=== PATIENT | female | born 1955 | race Caucasian/White ===

== ENCOUNTER 2018-09-04 08:26 | Outpatient (RCR) | payer MEDICARE, OTHER | END 2018-12-03 | disposition home or self-care (01) | LOC: CARD 08:26 | PROVIDERS: ATTEND Internal Medicine Cardiovascular Disease | DX: R07.89 Other chest pain (principal); I08.1 Rheumatic disorders of both mitral and tricuspid valves; E78.2 Mixed hyperlipidemia; I10 Essential (primary) hypertension; Z90.711 Acquired absence of uterus with remaining cervical stump | CPT/HCPCS: 93225; 93226 ==

== ENCOUNTER 2018-10-09 08:52 | Outpatient (CLI) | payer MEDICARE, OTHER | END 2018-10-09 09:29 | disposition home or self-care (01) | LOC: SLEEP 08:52 | PROVIDERS: ATTEND Internal Medicine Cardiovascular Disease | DX: G47.33 Obstructive sleep apnea (adult) (pediatric) (principal) ==

== ENCOUNTER 2018-11-21 20:46 | Outpatient (CLI) | payer MEDICARE, OTHER | END 2018-11-22 06:55 | disposition home or self-care (01) | LOC: SLEEP 20:46 | PROVIDERS: ATTEND Otolaryngology Otolaryngology/Facial Plastic Surgery | DX: G47.33 Obstructive sleep apnea (adult) (pediatric) (principal); G47.10 Hypersomnia, unspecified; R06.83 Snoring | CPT/HCPCS: 95811 ==

== ENCOUNTER 2020-02-01 20:46 | Emergency (ER) | payer MEDICARE, OTHER ==
[~2020-02-01] VITALS: Ht 165.1 cm; Wt 98.8 kg
--- OUTSIDE RECORDS SUMMARY | 2020-02-01 20:52 | XMS REPORT | Continuity of Care Document ---
Author Organization Unknown Address Unknown Phone Unavailable Allergies Active Description Code Type Severity Reaction Onset Reported/Identified Relationship to Patient Clinical Status Yes AZITHROMYCIN AZIT HROMYCIN UNKNOWN Yes AZITHROMYCIN UNKNOWN UNKNOWN Medications Medication Packaging Start Date St op Date Route Dosage Sig NORMAL SALINE 1000CC IV BAG INJ 0.9 % (NS 1000CC IV BAG) ml 08/08/2018 08/08/2018 ONCE&2218 ASPIRIN 81MG CHEWABLE TAB 81 MG (BABY ASPI RIN) tabs 08/08/2018 08/08/2018 ONCE&2236 HEPARIN 5,000 units/cc 1cc vial UNITS 08/09/2018 08/09/2018 ONCE&0203 HEPARIN DRIP IV BAG INJ 100 U/CC (HEPARIN DRIP 250CC PREMIX BAG) UNITS 08/09/2018 08/24/2018 CONTINUOUSEVERY 0 Hour Problems Date Dx Coded Attending Type Code Diagnosis Diagnosed By 03/24/2016 W 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 33 OBSTRUCTIVE SLEEP APNEA (ADULT) (PEDIATR 10/01/2018 PAOLA LIRIANO MD Ot E78. 2 MIXED HYPERLIPIDEMIA 10/01/2018 PAOLA LIRIANO MD Ot I08. 1 RHEUMATIC DISORDERS OF BOTH MITRAL AND T 10/01/2018 PAOLA LIRIANO MD Ot I10 ESSENTIAL (PRIMARY) HYPERTENSION 10/01/2018 PAOLA LIRIANO MD Ot R07. 89 OTHER CHEST PAIN 10/01/2018 PAOLA LIRIANO MD Ot Z90.711 ACQUIRED ABSENCE OF UTERUS WITH REMAININ 10/01/2018 PAOLA LIRIANO MD Ot G47. 33 OBSTRUCTIVE SLEEP APNEA (ADULT) (PEDIATR 10/02/2018 PAOLA LIRIANO MD Ot G47. 33 OBSTRUCTIVE SLEEP APNEA (ADULT) (PEDIATR 10/07/2018 PAOLA LIRIANO MD Ot E78. 2 MIXED HYPERLIPIDEMIA 10/07/2018 PAOLA LIRIANO MD Ot I08. 1 RHEUMATIC DISORDERS OF BOTH MITRAL AND T 10/07/2018 PAOLA LIRIANO MD Ot I10 ESSENTIAL (PRIMARY) HYPERTENSION 10/07/2018 PAOLA LIRIANO MD Ot R07. 89 OTHER CHEST PAIN 10/07/2018 PAOLA LIRIANO MD Ot Z90.711 ACQUIRED ABSENCE OF UTERUS WITH REMAININ 10/09/2018 PAOLA LIRIANO MD Ot G47. 33 OBSTRUCTIVE SLEEP APNEA (ADULT) (PEDIATR 10/09/2018 PAOLA LIRIANO MD Ot G47. 33 OBSTRUCTIVE SLEEP APNEA (ADULT) (PEDIATR 10/10/2018 PAOLA LIRIANO MD Ot G47. 33 OBSTRUCTIVE SLEEP APNEA (ADULT) (PEDIATR 10/13/2018 Nidia Sanz W 008.8 INTESTINAL INFECTION DUE TO OTHER ORGANISM, NOT ELSEWHERE CLASSIFIED 10/13/2018 Nidia Sanz A08.4 VIRAL INTESTINAL INFECTION, UNSPECIFIED 10/22/2018 PATEL HOLT MD Ot G47.33 OBSTRUCTIVE SLEEP APNEA (ADULT) (PEDIATR 10/28/2018 PATEL HOLT MD Ot G47.33 OBSTRUCTIVE SLEEP APNEA (ADULT) (PEDIATR 11/20/2018 PAOLA LIRIANO MD Ot E78. 2 MIXED HYPERLIPIDEMIA 11/20/2018 PAOLA LIRIANO MD Ot I08. 1 RHEUMATIC DISORDERS OF BOTH MITRAL AND T 11/20/2018 PAOLA LIRIANO MD Ot I10 ESSENTIAL (PRIMARY) HYPERTENSION 11/20/2018 PAOLA LIRIANO MD Ot R07. 89 OTHER CHEST PAIN 11/20/2018 PAOLA LIRIANO MD Ot Z90.711 ACQUIRED ABSENCE OF UTERUS WITH REMAININ 11/20/2018 PATEL HOLT MD Ot G47.33 OBSTRUCTIVE SLEEP APNEA (ADULT) (PEDIATR 11/21/2018 PATEL HOLT MD Ot G47.33 OBSTRUCTIVE SLEEP APNEA (ADULT) (PEDIATR 11/22/2018 JONATHON ROBERTS, PATEL Salas Ot G47.10 HYPERSOMNIA, UNSPECIFIED 11/22/2018 PATEL HOLT MD Ot G47.33 OBSTRUCTIVE SLEEP APNEA (ADULT) (PEDIATR 11/22/2018 JONATHON ROBERTS, PATEL Salas Ot R06.83 SNORING 11/25/2018 PATEL HOLT MD Ot G47.10 HYPERSOMNIA, UNSPECIFIED 11/25/2018 PATEL HOLT MD Ot G47.33 OBSTRUCTIVE SLEEP APNEA (ADULT) (PEDIATR 11/25/2018 JONATHON ROBERTS, PATEL Salas Ot R06.83 SNORING 12/03/2018 PAOLA LIRIANO MD Ot E78. 2 MIXED HYPERLIPIDEMIA 12/03/2018 PAOLA LIRIANO MD Ot I08. 1 RHEUMATIC DISORDERS OF BOTH MITRAL AND T 12/03/2018 PAOLA LIRIANO MD Ot I10 ESSENTIAL (PRIMARY) HYPERTENSION 12/03/2018 PAOLA LIRIANO MD Ot R07. 89 OTHER CHEST PAIN 12/03/2018 PAOLA LIRIANO MD Ot Z90.711 ACQUIRED ABSENCE OF UTERUS WITH REMAININ 12/04/2018 PAOLA LIRIANO MD Ot E78. 2 MIXED HYPERLIPIDEMIA 12/04/2018 PAOLA LIRIANO MD Ot I08. 1 RHEUMATIC DISORDERS OF BOTH MITRAL AND T 12/04/2018 PAOLA LIRIANO MD, Ot I10 ESSENTIAL (PRIMARY) HYPERTENSION 12/04/2018 PAOLA LIRIANO MD Ot R07. 89 OTHER CHEST PAIN 12/04/2018 PAOLA LIRIANO MD Ot Z90.711 ACQUIRED ABSENCE OF UTERUS WITH REMAININ Procedures There is no data. Results Test Result Range Thyroid Stimulating Hormone - 03/22/17 0 7:58 TSH 1.72 mIU/mL 0.32-5.00 BMP - 04/12/17 08:10 Anion Gap 15 6-14 BUN 23 mg/dL 5-25 Calcium 9.5 mg/dL 8.3-10.4 Chloride 107 mmol/L 95-114 CO2 25 mEq/L 22-33 Creat 0.99 mg/dL 0.50-1.50 eGFR 56 mL/min/1.73m2 >59 Glucose 102 mg/dL 70-110 Osmo 299 280-295 Potassium 4.0 mmol/L 3.5-5.3 Sodium 143 mmol/L 134-148 Comprehensive Metabolic Panel - 07/23/17 13:36 Albumin 4.2 g/dL 3.6-5.1 ALP 89 U/L 35-130 ALT 51 U/L 6-45 Anion Gap 14 6-14 AST 33 U/L 2-40 BUN 19 mg/dL 5-25 Calcium 10.1 mg/dL 8.3-10.4 Chloride 101 mmol/L 95-114 CO2 30 mEq/L 22-33 Creat 0.89 mg/dL 0.50-1.50 eGFR 64 mL/min/1.73m2 >59 Globulin 2.4 g/dL 2.3-3.5 Glucose 92 mg/dL 70-110 Osmo 293 280-295 Potassium 3.9 mmol/L 3.5-5.3 Sodium 141 mmol/L 134-148 TBil 0.8 mg/dL 0.2-1.2 TP 6.6 g/dL 6.0-8.3 Mycoplasma - 07/23/17 13:36 Mycoplasma Negative Negative Urine Culture - 07/23/17 13:36 PRELIM CULTURE RESULTS No Growth 24 hours FINAL CULTURE RESULTS No Growth 48 hours MEDIA PLATED Setup at 12:07 on 07/24/2017 CULTURE SOURCE clean catch, add on per Dr Dacosta Comprehensive Metabolic Panel - 08/08/18 22:20 Albumin 4.2 g/dL 3.6-5.1 ALP 99 U/L 35-130 ALT 29 U/L 6-45 Anion Gap 14 6-14 AST 26 U/L 2-40 BUN 21 mg/dL 5-25 Calcium 9.5 mg/dL 8.3-10.4 Chloride 103 mmol/L 95-114 CO2 26 mEq/L 22-33 Creat 0.91 mg/dL 0.50-1.50 eGFR 62 mL/min/1.73m2 >59 Globulin 3.3 g/dL 2.3-3.5 Glucose 128 mg/dL 70-110 Osmo 293 280-295 Potassium 3.4 mmol/L 3.5-5.3 Sodium 140 mmol/L 134-148 TBil 0.6 mg/dL 0.2-1.2 TP 7.5 g/dL 6.0-8.3 Creatine Kinase - 08/08/18 22:20 CK 109 U/L 26-174 i-Stat CKMB - 08/09/18 01:15 i-Stat CKMB 6.30 ng/mL 0.00-3.49 Zay Mtn Spotted Fev, IgG, Qn - 8 10:29 RMSF, IgG, EIA Positive Negative RMSF, IgG, IFA - 08/23/18 10:29 RMSF, IgG, IFA <1:64 Neg <1:64 Zay Mtn Spotted Fever, IgM - 08/23/18 10:29 Zay Mtn Spotted Fever, IgM 0.48 index 0.00-0.89 ROSEMARY w/Reflex - 08/23/18 10:29 ROSEMARY Direct Negative Negative Sed Rate - 08/23/18 10:29 Sed Rate 8 mm/hr 9-15 ROSEMARY w/Reflex - 08/23/18 10:29 ROSEMARY DIRECT NEGATIVE NEGATIVE Lipid Panel - 09/24/18 08:42 C/HDL 3.4 3.7-6.7 Cholesterol 185 mg/dL 100-240 HDL 55 mg/dL 30-85 LDL-Calculated 112 mg/dL 0-100 Trig 89 mg/dL 35-160 VLDL 18 mg/dL 0-42 Comprehensive Metabolic Panel - 10/13/18 17:18 Albumin 4.1 g/dL 3.6-5.1 ALP 91 U/L 35-130 ALT 23 U/L 6-45 Anion Gap 15 6-14 AST 26 U/L 2-40 BUN 20 mg/dL 5-25 Calcium 9.6 mg/dL 8.3-10.4 Chloride 106 mmol/L 95-114 CO2 24 mEq/L 22-33 Creat 1.19 mg/dL 0.50-1.50 eGFR 45 mL/min/1.73m2 >59 Globulin 2.4 g/dL 2.3-3.5 Glucose 96 mg/dL 70-110 Osmo 293 280-295 Potassium 3.7 mmol/L 3.5-5.3 Sodium 141 mmol/L 134-148 TBil 0.5 mg/dL 0.2-1.2 TP 6.5 g/dL 6.0-8.3 Urine Culture - 01/24/19 17:14 PRELIM CULTURE RESULTS No Growth 24 hours FINAL CULTURE RESULTS No Growth 48 hours CULTURE SOURCE CC Hemoglobin A1C - 11/12/19 07:25 % A1C 6.00 % 5.40-6.60 AvGlu 136 mg/dL 70-110 Encounters ACCT No. Visit Date/Time Discharge Status Pt. Type Provider Facility Loc./Unit Complaint [id number] 06/05/2014 08:53:32 06/05/2014 23:59: 59 CLS Outpatient Maritza Gu Tonya [id number] 05/04/2014 15:42:21 05/04/2014 23:59: 59 CLS Outpatient Maritza Gu Tonya [id number] 08/27/2018 15:22:00 Document Registration [id number] 11/12/2019 07:21:00 11/12/2019 23:59 :00 DIS Outpatient Danielle Dacosta [id number] 01/24/2019 17:13:00 01/24/2019 23:59: 00 DIS Outpatient Danielle Dacosta [id number] 10/13/2018 17:06:00 10/13/2018 19:00: 00 DIS Outpatient Nidia Sanz [facility] ER [id number] 09/24/2018 08:39:00 09/24/2018 23:59: 00 DIS Outpatient PAOLA LIRIANO [id number] 08/23/2018 10:26:00 08/23/2018 23:59: 00 DIS Outpatient Danielle Dacosta [id number] 08/08/2018 22:06:00 08/09/2018 03:10: 00 [id number] 07/23/2017 13:33:00 07/23/2017 23:59: 00 DIS Outpatient Danielle Dacosta [id number] 07/23/2017 11:54:00 07/23/2017 23:59: 00 DIS Outpatient Danielle Dacosta [id number] 04/12/2017 07:34:00 04/12/2017 23:59: 00 DIS Outpatient Danielle Dacosta [id number] 03/22/2017 07:56:00 03/22/2017 23:59: 00 DIS Outpatient Danielle Dacosta [id number] 11/02/2016 09:55:00 11/02/2016 23:59: 00 DIS Outpatient Danielle Dacosta [id number] 03/31/2016 00:00:00 03/31/2016 00:00: 00 CAN Outpatient Edgar Callgabo [id number] 08/08/2018 22:39:10 Document Registration [id number] 03/24/2016 11:29:00 Document Registration [id number] 12/04/2018 00:10:00 23:59:59 CLS Preadmit HERI ROBERTS, PAOLA Lewis [facility] CARD ANTERIOR CHEST WALL ANGEL Rosales, MR, TR [id number] 09/04/2018 08:26:00 00:01:00 DIS Outpatient HERI ROBERTS, PAOLA Lewis [facility] CARD ANTERIOR CHEST WALL ANGEL Rosales, MR, TR [id number] 11/21/2018 20:46:00 06:55:00 DIS Outpatient JONATHON ROBERTS, PATEL Salas [facility] SLEEP CORINNA [id number] 10/09/2018 08:52:00 09:29:00 DIS Outpatient HERI ROBERTS, PAOLA Lewis [facility] SLEEP CORINNA G47.33
[2020-02-01] MEDS ORDERED: morphine INJ 10 MG/ML 1ML (SYR OR VIAL) IVP STA (20:56)
[2020-02-01] MEDS ORDERED: ASPIRIN 81 MG CHEW (CHILDREN'S ASA) PO ONE (21:00)
[2020-02-01] MEDS ORDERED: diphenhydrAMINE 50 MG/ML INJ (BENADRYL) IVP ONE (21:00)
[2020-02-01] MEDS ORDERED: PROMETHAZINE INJ 25 MG/ML (PHENERGAN) AMP IVP ONE (21:00)
--- NOTE | 2020-02-01 21:10 | ED General ---
General Stated Complaint: POSS HYPERTENSION History of Present Illness Date Seen by Provider: February 01, 2020 Time Seen by Provider: 21:07 Initial Comments Patient presenting to emergency department for evaluation of multiple symptoms including headache chest pain shortness of breath diaphoresis nausea and generally not feeling well. Patient says that the headache has been going on since 2:00 this afternoon and she says it is diffuse and not associated with any photophobia fevers vomiting neck stiffness unilateral weakness numbness or tingling. She said this is what brought her to the emergency department but on review of systems questions she says that she is having right-sided chest pressure with associated shortness of breath diaphoresis nausea. She says this started approximately 3 hours prior to arrival. She says she has a history of migraine headaches and this feels similar to prior migraine headaches. She had a stress test and heart catheterization in July 2018 that she says came back normal. She has a history of hypertension and high cholesterol but no diabetes smoking or other vascular risk factors. She is in no obvious distress with n ormal vital signs other than hypertension. Allergies and Home Medications Allergies Coded Allergies: No Known Drug Allergies (Unverified , 02/01/20) Patient Home Medication List Home Medication List Reviewed: Yes Review of Systems Review of Systems Constitutional: no symptoms reported EENTM: no symptoms reported Respiratory: short of breath Cardiovascular: chest pain Gastrointestinal: nausea Genitourinary: no symptoms reported Musculoskeletal: no symptoms reported Skin: no symptoms reported Psychiatric/Neurological: Headache All Other Systems Reviewed Negative Unless Noted: Yes Past Pygqeor-Nykfqh-Tlpmlm Hx Patient Social History Recent Foreign Travel: No Contact w/Someone Who Travel: No Physical Exam Vital Signs Vital Signs - First Documented Capillary Refill : Height, Weight, BMI Height: '" Weight: lbs. oz. kg; BMI Method: General Appearance: No Apparent Distress, WD/WN HEENT: PERRL/EOMI Neck: Supple Respiratory: Lungs Clear, No Respiratory Distress Cardiovascular: Regular Rate, Rhythm Gastrointestinal: Non Tender, Soft Back: Normal Inspection Extremity: Normal Capillary Refill Neurologic/Psychiatric: Alert, Oriented x3 Skin: Warm/Dry Progress/Results/Core Measures Suspected Sepsis SIRS Temperature: Pulse: Respiratory Rate: Laboratory Tests 02/01/20 21:03: White Blood Count 8.5 Blood Pressure / Mean: Laboratory Tests 02/01/20 21:03: Creatinine 0.85, INR Comment 1.0, Platelet Count 281, Total Bilirubin 0.7 Results/Orders Lab Results Laboratory Tests Test 02/01/20 21:03 Range/Units White Blood Count 8.5 4.3-11.0 10^3/uL Red Blood Count 4.59 4.35-5.85 10^6/uL Hemoglobin 13.6 11.5-16.0 G/DL Hematocrit 41 35-52 % Mean Corpuscular Volume 89 80-99 FL Mean Corpuscular Hemoglobin 30 25-34 PG Mean Corpuscular Hemoglobin Concent 34 32-36 G/DL Red Cell Distribution Width 13.4 10.0-14.5 % Platelet Count 281 130-400 10^3/uL Mean Platelet Volume 10.2 7.4-10.4 FL Neutrophils (%) (Auto) 74 42-75 % Lymphocytes (%) (Auto) 18 12-44 % Monocytes (%) (Auto) 6 0-12 % Eosinophils (%) (Auto) 1 0-10 % Basophils (%) (Auto) 1 0-10 % Neutrophils # (Auto) 6.3 1.8-7.8 X 10^3 Lymphocytes # (Auto) 1.5 1.0-4.0 X 10^3 Monocytes # (Auto) 0.5 0.0-1.0 X 10^3 Eosinophils # (Auto) 0.1 0.0-0.3 10^3/uL Basophils # (Auto) 0.0 0.0-0.1 10^3/uL Prothrombin Time 13.1 12.2-14.7 SEC INR Comment 1.0 0.8-1.4 Activated Partial Thromboplast Time 29 24-35 SEC Sodium Level 142 135-145 MMOL/L Potassium Level 3.7 3.6-5.0 MMOL/L Chloride Level 103 98-107 MMOL/L Carbon Dioxide Level 24 21-32 MMOL/L Anion Gap 15 H 5-14 MMOL/L Blood Urea Nitrogen 12 7-18 MG/DL Creatinine 0.85 0.60-1.30 MG/DL Estimat Glomerular Filtration Rate > 60 BUN/Creatinine Ratio 14 Glucose Level 125 H 70-105 MG/DL Calcium Level 9.7 8.5-10.1 MG/DL Corrected Calcium 9.5 8.5-10.1 MG/DL Magnesium Level 2.0 1.6-2.4 MG/DL Total Bilirubin 0.7 0.1-1.0 MG/DL Aspartate Amino Transf (AST/SGOT) 21 5-34 U/L Alanine Aminotransferase (ALT/SGPT) 17 0-55 U/L Alkaline Phosphatase 70 40-136 U/L Troponin I < 0.30 <0.30 NG/ML Pro-B-Type Natriuretic Peptide 123.5 H <75.0 PG/ML Total Protein 6.8 6.4-8.2 GM/DL Albumin 4.2 3.2-4.5 GM/DL Lipase 17 8-78 U/L My Orders Orders - CAROLINE AGUILAR DO Ct Head Wo (02/01/20 20:56) Iv/Invasive Line Insertion .IV start (02/01/20 20:56) Cbc With Automated Diff (02/01/20 20:56) Comprehensive Metabolic Panel (02/01/20 20:56) Chest 1 View Ap/Pa Only (02/01/20 20:56) Ekg Tracing (02/01/20 20:56) Ua Culture If Indicated (02/01/20 20:56) Troponin I Fs (02/01/20 20:56) Protime With Inr (02/01/20 20:56) Probnp Fs (02/01/20 20:56) Partial Thromboplastin Time (02/01/20 20:56) Magnesium (02/01/20 20:56) Lipase (02/01/20 20:56) Morphine Injection (Morphine Injection (02/01/20 20:56) Promethazine Injection (Phenergan Injec (02/01/20 21:00) Aspirin Chewable Tablet (Baby Aspirin Ch (02/01/20 21:00) Diphenhydramine Injection (Benadryl Inje (02/01/20 21:00) Medications Given in ED Current Medications Medications Dose Ordered Sig/Jackie Route Start Time Stop Time Status Last Admin Dose Admin Aspirin 324 mg ONCE ONCE PO 02/01/20 21:00 02/01/20 21:01 DC 02/01/20 21:15 324 MG Diphenhydramine HCl 25 mg ONCE ONCE IVP 02/01/20 21:00 02/01/20 21:01 DC 02/01/20 21:20 25 MG Promethazine HCl 12.5 mg ONCE ONCE IVP 5/24/20 21:00 02/01/20:01 DC 02/01/20 21:16 12.5 MG Vital Signs/I&O 02/01/20 02/01/20 20:50 20:50 Temp 37.0 Pulse 109 Resp 20 B/P (MAP) 164/98 (120) Pulse Ox 100 O2 Delivery Room Air Room Air Capillary Refill : Progress Note : Progress Note Patient will get multiple tests including blood work CT EKG and reassess. I will also treat her headache and chest pain. Patient's workup came back unremarkable for acute process and her pain improved significantly. She says she no longer has chest pain. Her EKG and troponin are negative however the pain only started 3 hours ago so I told her we should do a repeat troponin and 2-3 hours however she refused stating that she feels well and would like to go home. I explained why I wanted to do the repeat testing and she verbalized understanding and accepted the risks of and disability by leaving without a full workup. Patient aware and agreeable with plan for discharge and verbalized understanding of the need for short-term follow-up and strict ED return precautions discussed including worsening pain neurologic changes or other general concerns. Departure Impression Primary Impression: Chest pain Qualified Codes: R07.9 - Chest pain, unspecified Additional Impression: Headache Qualified Codes: R51 - Headache Disposition: 01 HOME, SELF-CARE Condition: Stable Departure-Patient Inst. Referrals: ALISSON SALCIDO MD (PCP/Family) Primary Care Physician Patient Instructions: Headache, Adult, Chest Pain (DC) CAROLINE AGUILAR DO February 01, 2020 21:09
[2020-02-01 21:11] LABS: BASOPHILS % (AUTO) 1 % (0-10); EOSINOPHILS # (AUTO) 0.1 10^3/uL (0.0-0.3); EOSINOPHILS % (AUTO) 1 % (0-10); HEMATOCRIT 41 % (35-52); HEMOGLOBIN 13.6 G/DL (11.5-16.0); LYMPHOCYTES # (AUTO) 1.5 X 10^3 (1.0-4.0); LYMPHOCYTES % (AUTO) 18 % (12-44); MEAN CORPUSCULAR HEMOGLOBIN 30 PG (25-34); MEAN CORPUSCULAR HGB CONC 34 G/DL (32-36); MEAN CORPUSCULAR VOLUME 89 FL (80-99); MEAN PLATELET VOLUME 10.2 FL (7.4-10.4); MONOCYTES # (AUTO) 0.5 X 10^3 (0.0-1.0); MONOCYTES % (AUTO) 6 % (0-12); NEUTROPHILS # (AUTO) 6.3 X 10^3 (1.8-7.8); NEUTROPHILS % (AUTO) 74 % (42-75); PLATELET COUNT 281 10^3/uL (130-400); RED CELL DISTRIBUTION WIDTH 13.4 % (10.0-14.5); WHITE BLOOD COUNT 8.5 10^3/uL (4.3-11.0)
--- NOTE | 2020-02-01 21:28 | Diagnostic Imaging Report ---
INDICATION: Head pain. EXAMINATION: Single view of the chest was obtained. FINDINGS: No focal consolidation, failure pattern, effusion or pneumothorax. No acute appearing abnormality. IMPRESSION: No acute appearing abnormality. Dictated by: Dictated on workstation # [id number]
--- NOTE | 2020-02-01 21:28 | Diagnostic Imaging Report ---
PROCEDURE: CT head without contrast. TECHNIQUE: Multiple contiguous axial images were obtained through the brain without the use of intravenous contrast. Auto Exposure Controls were utilized during the CT exam to meet ALARA standards for radiation dose reduction. INDICATION: Head pain. FINDINGS: here is no hemorrhage, hydrocephalus, edema, mass, mass effect or evidence for elevated intracranial pressures. The basilar cisterns are patent and there is no sulcal effacement. Orbits, sinuses and calvarium appear within normal limits. IMPRESSION: Unremarkable CT head. Dictated by: Dictated on workstation # [id number]
[2020-02-01 21:32] LABS: PROTHROMBIN TIME PATIENT 13.1 SEC (12.2-14.7)
[2020-02-01 21:33] LABS: ALANINE AMINOTRANSFERASE 17 U/L (0-55); ALKALINE PHOSPHATASE 70 U/L (40-136); BILIRUBIN,TOTAL 0.7 MG/DL (0.1-1.0); BUN/CREATININE RATIO 14; CALCIUM 9.7 MG/DL (8.5-10.1); CARBON DIOXIDE 24 MMOL/L (21-32); CHLORIDE 103 MMOL/L (98-107); CREATININE SERUM 0.85 MG/DL (0.60-1.30); GFR ESTIMATED > 60; GLUCOSE 125 MG/DL (70-105); POTASSIUM 3.7 MMOL/L (3.6-5.0); SODIUM 142 MMOL/L (135-145)
[2020-02-01 21:34] LABS: ALBUMIN 4.2 GM/DL (3.2-4.5); LIPASE 17 U/L (8-78); TOTAL PROTEIN 6.8 GM/DL (6.4-8.2)
[2020-02-01 22:02] VITALS: BP 115/68
== END 2020-02-01 22:02 | disposition home or self-care (01) ==
LOC: EDUNIT# 20:46 → ER FS 20:48
DX: R07.89 Other chest pain (principal); R51 Headache; Z86.69 Personal history of other diseases of the nervous system and sense organs; Z95.9 Presence of cardiac and vascular implant and graft, unspecified
CPT/HCPCS: 36415; 70450; 71045; 80053; 83690; 83735; 83880; 84484; 85025; 85610; 85730; 93005

== ENCOUNTER 2020-02-02 11:23 | Emergency (ER) | payer MEDICARE, OTHER ==
[~2020-02-02] VITALS: Ht 170 cm; Wt 98.0 kg
--- OUTSIDE RECORDS SUMMARY | 2020-02-02 11:28 | XMS REPORT | Continuity of Care Document ---
[...] Status Pt. Type Provider Facility Loc./Unit Complaint [id number] 06/05/2014 08:53:32 06/05/2014 23:59: 59 CLS Outpatient Maritza Gu Tonya [id number] 05/04/2014 15:42:21 05/04/2014 23:59: 59 CLS Outpatient Maritza Gu Tonya [id number] 08/27/2018 15:22:00 Document Registration [id number] 11/12/2019 07:21:00 11/12/2019 23:59 :00 DIS Outpatient Danielle Dacosta [id number] 01/24/2019 17:13:00 01/24/2019 23:59: 00 DIS Outpatient Danielle Dacosta [id number] 10/13/2018 17:06:00 10/13/2018 19:00: 00 DIS Outpatient Nidia Sanz [facility] ER [id number] 09/24/2018 08:39:00 09/24/2018 23:59: 00 DIS Outpatient PAOLA LIRIANO [id number] 08/23/2018 10:26:00 08/23/2018 23:59: 00 DIS Outpatient Danielle Dacosta [id number] 08/08/2018 22:06:00 08/09/2018 03:10: 00 [id number] 07/23/2017 13:33:00 07/23/2017 23:59: 00 DIS Outpatient Danielle Dacosta [id number] 07/23/2017 11:54:00 07/23/2017 23:59: 00 DIS Outpatient Danielle Dacosta [id number] 04/12/2017 07:34:00 04/12/2017 23:59: 00 DIS Outpatient Danielle Dacosta [id number] 03/22/2017 07:56:00 03/22/2017 23:59: 00 DIS Outpatient Danielle Dacosta [id number] 11/02/2016 09:55:00 11/02/2016 23:59: 00 DIS Outpatient Danielle Dacosta [id number] 03/31/2016 00:00:00 03/31/2016 00:00: 00 CAN Outpatient Edgar Callgabo [id number] 08/08/2018 22:39:10 Document Registration [id number] 03/24/2016 11:29:00 Document Registration [id number] 12/04/2018 00:10:00 23:59:59 CLS Preadmit HERI ROBERTS, PAOLA Lewis [facility] CARD ANTERIOR CHEST WALL ANGEL Rosales, MR, TR [id number] 09/04/2018 08:26:00 00:01:00 DIS Outpatient HERI ROBERTS, PAOLA Lewis [facility] CARD ANTERIOR CHEST WALL ANGEL Rosales, MR, TR [id number] 11/21/2018 20:46:00 06:55:00 DIS Outpatient JONATHON ROBERTS, PATEL Salas [facility] SLEEP CORINNA [id number] 10/09/2018 08:52:00 09:29:00 DIS Outpatient HERI ROBERTS, PAOLA Lewis [facility] SLEEP CORINNA G47.33
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
[2020-02-02 12:32] LABS: BASOPHILS % (AUTO) 0 % (0-10); EOSINOPHILS % (AUTO) 1 % (0-10); HEMATOCRIT 39 % (35-52); HEMOGLOBIN 13.1 G/DL (11.5-16.0); LYMPHOCYTES % (AUTO) 12 % (12-44); MEAN CORPUSCULAR HEMOGLOBIN 30 PG (25-34); MEAN CORPUSCULAR HGB CONC 33 G/DL (32-36); MEAN CORPUSCULAR VOLUME 90 FL (80-99); MEAN PLATELET VOLUME 10.2 FL (7.4-10.4); MONOCYTES % (AUTO) 6 % (0-12); NEUTROPHILS % (AUTO) 81 % (42-75); PLATELET COUNT 272 10^3/uL (130-400); WHITE BLOOD COUNT 7.3 10^3/uL (4.3-11.0)
[2020-02-02 12:33] LABS: EOSINOPHILS # (AUTO) 0.1 10^3/uL (0.0-0.3); LYMPHOCYTES # (AUTO) 0.9 X 10^3 (1.0-4.0); MONOCYTES # (AUTO) 0.5 X 10^3 (0.0-1.0); NEUTROPHILS # (AUTO) 5.9 X 10^3 (1.8-7.8)
[2020-02-02 12:54] LABS: PROTHROMBIN TIME PATIENT 13.6 SEC (12.2-14.7)
[2020-02-02 13:02] LABS: TRICYCLIC ANTIDEPRESSANTS SCRE POSITIVE (NEGATIVE)
[2020-02-02 13:03] LABS: AMPHETAMINE SCREEN, URINE NEGATIVE (NEGATIVE); BARBITURATE SCREEN URINE NEGATIVE (NEGATIVE); BENZODIAZEPINES SCREEN URINE NEGATIVE (NEGATIVE); CANNABINOID SCREEN, URINE NEGATIVE (NEGATIVE); COCAINE SCREEN URINE NEGATIVE (NEGATIVE); METHADONE STAT NEGATIVE (NEGATIVE); METHAMPHETAMINE SCREEN URINE S NEGATIVE (NEGATIVE); OPIATE SCREEN URINE NEGATIVE (NEGATIVE); OXYCODONE STAT NEGATIVE (NEGATIVE); PROPOXYPHENE STAT NEGATIVE (NEGATIVE)
[2020-02-02 13:10] LABS: BACTERIA,URINE NEGATIVE /HPF; BILIRUBIN,URINE NEGATIVE (NEGATIVE); CLARITY,URINE CLEAR; COLOR,URINE YELLOW; GLUCOSE, URINE (UA) NEGATIVE (NEGATIVE); KETONES,URINE NEGATIVE (NEGATIVE); LEUKOCYTE ESTERASE ,URINE NEGATIVE (NEGATIVE); NITRITE,URINE NEGATIVE (NEGATIVE); PH,URINE 7.5 (5-9); PROTEIN,URINE NEGATIVE (NEGATIVE); SQUAMOUS EPITHELIAL CELL,UR RARE /HPF
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
[2020-02-02 13:12] LABS: ALANINE AMINOTRANSFERASE 16 U/L (0-55); ALKALINE PHOSPHATASE 70 U/L (40-136); BILIRUBIN,TOTAL 0.8 MG/DL (0.1-1.0); BUN/CREATININE RATIO 12; CALCIUM 9.7 MG/DL (8.5-10.1); CARBON DIOXIDE 24 MMOL/L (21-32); CHLORIDE 102 MMOL/L (98-107); CREATININE SERUM 0.84 MG/DL (0.60-1.30); GFR ESTIMATED > 60; GLUCOSE 132 MG/DL (70-105); POTASSIUM 3.8 MMOL/L (3.6-5.0); SODIUM 139 MMOL/L (135-145); TOTAL PROTEIN 6.5 GM/DL (6.4-8.2)
[2020-02-02 13:13] LABS: ACETAMINOPHEN < 10 UG/ML (10-30); MAGNESIUM 2.1 MG/DL (1.6-2.4)
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
--- NOTE | 2020-02-02 13:34 | NUR ---
[facility] CALLED AT THIS TIME.
--- NOTE | 2020-02-02 13:52 | NUR ---
PACKET FAXED TO [facility]
--- NOTE | 2020-02-02 15:08 | NUR ---
MENTAL HEALTH ZOOM MEETING TAKEING PLACE AT THIS TIME.
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
--- NOTE | 2020-02-02 15:49 | NUR ---
SCREENER RETUNRED CALL ON NORMAL PHONE TO FINISH UP HER SCREENING AT THIS TIME.
--- NOTE | 2020-02-02 16:38 | NUR ---
[facility] CALLED AND THE PT WILL BE DISCHARGED ON A SAFETY PLAN AND SHE WILL HAVE AN APPT TOMORROW. SHE HAS THE 24 HR CRISIS LINE INFO AND HER IS CURRENTLY IN [facility].
--- NOTE | 2020-02-02 17:34 | NUR ---
RAYMON SANCHEZ IN ADDRESS AND PHONE NUMBER IN [place] FOR [employer] WAS PROVIDED. PT IS GOING TO GRAB HER CLOTHES AND HER RELIABLE VEHICEL AND STAY AT A SAFE PLACE TONIGHT.
[2020-02-02 17:36] VITALS: BP 112/72
--- NOTE | 2020-02-02 17:37 | NUR ---
SAFETY PLAN SIGNED AND PROVIDED A COPY TO THE PATIENT.
== END 2020-02-02 17:38 | disposition home or self-care (01) ==
LOC: EDUNIT# 11:23 → ER FS 11:24 → EEVIPCON 11:24 → ER FS 17:38
DX: S50.11XA Contusion of right forearm, initial encounter (principal); T74.11XA Adult physical abuse, confirmed, initial encounter; F32.9 Major depressive disorder, single episode, unspecified; F41.9 Anxiety disorder, unspecified; F06.31 Mood disorder due to known physiological condition with depressive features; I25.2 Old myocardial infarction; Z95.9 Presence of cardiac and vascular implant and graft, unspecified; Y04.0XXA Assault by unarmed brawl or fight, initial encounter; Y07.01 Husband, perpetrator of maltreatment and neglect
CPT/HCPCS: 36415; 80053; 80306; 80320; 80329; 81000; 83735; 85025; 85610; 93005

== ENCOUNTER 2020-03-24 22:05 | Emergency (ER) | payer MEDICARE, OTHER ==
[~2020-03-24] VITALS: Ht 170 cm; Wt 90.0 kg
[2020-03-24 22:08] VITALS: BP 136/73
--- NOTE | 2020-03-24 22:10 | NUR ---
DR. HANDLEY REMOVED QTIP HEAD FROM RIGHT EAR.
[2020-03-24] MEDS ORDERED: NF-CIPDEC OT (22:18)
--- NOTE | 2020-03-24 22:18 | ED EENT ---
History of Present Illness General Stated Complaint: R EAR Q TIP STUCK Source: patient Exam Limitations: no limitations History of Present Illness Date Seen by Provider: Mar 24, 2020 Time Seen by Provider: 22:04 Initial Comments Patient to the ER for Q-tip broke off in her right ear canal. No loss of hearing or significant pain. No bleeding or purulence. It happened just prior to arrival. Allergies and Home Medications Allergies Coded Allergies: No Known Drug Allergies (Unverified , 02/01/20) Patient Home Medication List Home Medication List Reviewed: Yes Review of Systems Review of Systems Constitutional: No chills, No diaphoresis Eyes: Denies Blindness, Denies Blurred Vision Ears: See HPI; Denies Dizziness, Denies Pain Nose: denies clots, denies congestion Mouth: denies clots, denies loose teeth Throat: denies pain, denies swelling All Other Systems Reviewed Negative Unless Noted: Yes Past Ilysnme-Fpckrs-Ltqzfe Hx Patient Social History Alcohol Use: Denies Use Recreational Drug Use: No Smoking Status: Never a Smoker 2nd Hand Smoke Exposure: No Recent Foreign Travel: No Contact w/Someone Who Travel: No Recent Hopitalizations: No Seasonal Allergies Seasonal Allergies: No Past Medical History Surgeries: Yes (Cardiac Cath with no intervention) Respiratory: No Cardiac: Yes (NSTEMI) High Cholesterol, Hypertension Neurological: Yes Headaches /Migraines Genitourinary: No Gastrointestinal: No Musculoskeletal: Yes Arthritis Endocrine: No HEENT: No Cancer: No Psychosocial: No Integumentary: No Physical Exam Height, Weight, BMI Height: '" Weight: lbs. oz. kg; 33.00 BMI Method: General Appearance: WD/WN, no apparent distress Eyes: bilateral eye normal inspection, bilateral eye PERRL, bilateral eye EOMI Ears: right ear foreign body (distal one third of a intact Q-tip retrieved from the external auditory canal); left ear canal normal; bilateral ear auricle normal, bilateral ear TM normal Nose: normal inspection; No discharge Mouth/Throat: normal mouth inspection, pharynx normal Cardiovascular: normal peripheral pulses, regular rate, rhythm Respiratory: no respiratory distress, no accessory muscle use Neurologic/Psychiatric: alert, normal mood/affect, oriented x 3 Procedures/Interventions I&D : Site: right ear canal and external Progress Using forceps we grasp the shaft of the Q-tip and removed it from the ear. Departure Impression Primary Impression: Foreign body of external ear Qualified Codes: S00.451A - Superficial foreign body of right ear, initial encounter Disposition: 01 HOME, SELF-CARE Condition: Stable Departure-Patient Inst. Decision time for Depature: 22:15 Referrals: EMILY GREEN MD (PCP/Family) Primary Care Physician Patient Instructions: Foreign Body in Ear, Child (DC) Add. Discharge Instructions: Please do not place anything in your ear canal. You may use [id number] preps such as Debrox if you feel you need clean your ear canal out. If you develop redness, pain or discharge from the ear then you may start Ciprodex drops 3 drops in the right ear twice a day for one week. Follow-up with primary care for any further concerns. Scripts Ciprofloxacin HCl/Dexameth (Ciprodex Otic Suspension) 7.5 Ml Soln 3 DROPS OT BID for 7 Days, #1 EA 0 Refills Prov: DAIN HANDLEY 03/24/20 DAIN HANDLEY Mar 24, 2020 22:18
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
== END 2020-03-24 22:22 | disposition home or self-care (01) ==
LOC: EDUNIT# 22:05 → ER 22:06
DX: T16.1XXA Foreign body in right ear, initial encounter (principal); I21.4 Non-ST elevation (NSTEMI) myocardial infarction; I25.2 Old myocardial infarction; X58.XXXA Exposure to other specified factors, initial encounter; Z95.9 Presence of cardiac and vascular implant and graft, unspecified
CPT/HCPCS: 99282

== ENCOUNTER → 2020-06-15 | Outpatient (CLI) | payer MEDICARE, OTHER ==
[~2020-06-15] MED LIST: NF-CIPDEC OT
== END ==
LOC: LABNPT 05:41
PROVIDERS: ATTEND Family Medicine
DX: R50.9 Fever, unspecified (principal); Z20.828 Contact with and (suspected) exposure to other viral communicable diseases
CPT/HCPCS: 87635

== ENCOUNTER → 2020-08-04 | Outpatient (CLI) | payer MEDICARE, OTHER | LOC: LABNPT 05:33 | PROVIDERS: ATTEND Family Medicine | DX: R05 Cough (principal); R50.9 Fever, unspecified; R51.9 Headache, unspecified; Z20.828 Contact with and (suspected) exposure to other viral communicable diseases | CPT/HCPCS: 87635 ==

== ENCOUNTER → 2020-09-16 | Outpatient (CLI) | payer MEDICARE, OTHER ==
[2020-09-16 07:34] LABS: BASOPHILS % (AUTO) 1 % (0-10); EOSINOPHILS # (AUTO) 0.2 10^3/uL (0.0-0.3); EOSINOPHILS % (AUTO) 4 % (0-10); HEMATOCRIT 40 % (35-52); HEMOGLOBIN 13.6 g/dL (11.5-16.0); LYMPHOCYTES # (AUTO) 1.2 10^3/uL (1.0-4.0); LYMPHOCYTES % (AUTO) 21 % (12-44); MEAN CORPUSCULAR HEMOGLOBIN 32 pg (25-34); MEAN CORPUSCULAR HGB CONC 34 g/dL (32-36); MEAN CORPUSCULAR VOLUME 92 fL (80-99); MEAN PLATELET VOLUME 10.2 fL (9.0-12.2); MONOCYTES # (AUTO) 0.5 10^3/uL (0.0-1.0); MONOCYTES % (AUTO) 8 % (0-12); NEUTROPHILS # (AUTO) 3.8 10^3/uL (1.8-7.8); NEUTROPHILS % (AUTO) 67 % (42-75); PLATELET COUNT 253 10^3/uL (130-400); WHITE BLOOD COUNT 5.7 10^3/uL (4.3-11.0)
[2020-09-16 07:48] LABS: CHLORIDE 101 MMOL/L (98-107); POTASSIUM 3.8 MMOL/L (3.6-5.0); SODIUM 140 MMOL/L (135-145)
[2020-09-16 07:49] LABS: CALCIUM 9.5 MG/DL (8.5-10.1)
[2020-09-16 07:50] LABS: GLUCOSE 96 MG/DL (70-105); TOTAL PROTEIN 6.5 GM/DL (6.4-8.2)
[2020-09-16 07:51] LABS: CARBON DIOXIDE 26 MMOL/L (21-32)
[2020-09-16 07:52] LABS: BILIRUBIN,TOTAL 1.1 MG/DL (0.1-1.0)
[2020-09-16 07:54] LABS: ALKALINE PHOSPHATASE 59 U/L (40-136); CREATININE SERUM 0.83 MG/DL (0.60-1.30); GFR ESTIMATED > 60
[2020-09-16 07:55] LABS: BUN/CREATININE RATIO 16
[2020-09-16 07:57] LABS: ALANINE AMINOTRANSFERASE 23 U/L (0-55)
== END ==
LOC: LAB 07:10
PROVIDERS: ATTEND Family Medicine
DX: I10 Essential (primary) hypertension (principal); R07.89 Other chest pain
CPT/HCPCS: 36415; 80053; 84443; 85025; 93005

== ENCOUNTER → 2020-10-15 | Outpatient (CLI) | payer MEDICARE, OTHER ==
--- NOTE | 2020-10-15 09:16 | Diagnostic Imaging Report ---
INDICATION: Chest pressure and anterior chest pain. PA and lateral views of the chest are obtained with comparison made to study of 02/01/2020. FINDINGS: Heart size and pulmonary vascularity are within normal limits, and the lungs are clear, bilaterally. IMPRESSION: Unremarkable chest. Dictated by: Dictated on workstation # [id number]
== END ==
LOC: CARD 08:14
PROVIDERS: ATTEND Physician Assistant
DX: R07.89 Other chest pain (principal); I10 Essential (primary) hypertension
CPT/HCPCS: 71046; 93306

== ENCOUNTER → 2020-10-25 | Outpatient (CLI) | payer MEDICARE, OTHER ==
[~2020-10-25] VITALS: Ht 170 cm; Wt 77.0 kg
[~2020-10-25] MED LIST changes: +CATHETER FLUSH 10 ML SYR IV PRN; +REGADENOSON 0.4 MG/5 ML SYR (LEXISCAN) IV ONE
[2020-10-25 08:57] VITALS: BP 140/85
--- NOTE | 2020-10-27 10:56 | Cardiology Stress Test Report ---
Stress Test Report Date of Procedure/Referring: Date of Procedure: Oct 25, 2020 Allison Rivera Admitting Physician Alvina Burns MD Indications: Chest pain Baseline Heart Rate: 54 Baseline Blood Pressure: Blood Pressure Systolic: 140 Blood Pressure Diastolic: 85 Baseline Vitals Vital Signs Date Time Temp Pulse Resp B/P (MAP) Pulse Ox O2 Delivery O2 Flow Rate FiO2 10/25/20 08:57 59 18 140/85 (103) 97 Room Air Baseline EKG: Baseline EKG: normal sinus rhythm Summary After explaining the procedure to the patient, she signed a consent and then brought to the stress nuclear laboratory. Patient received 0.4 mg Lexiscan for stress test, ECG, heart rate and blood pressure were monitored continuously. Resting and stress dose of radio tracer were injected, imaging was acquired and reviewed in short axis, horizontal long axis and vertical long axis views. TID: 1.05 SSS: 5 SDS: 5 EF: 61 1. Patient tolerated Lexiscan well 2. Breast attenuation with mild decreased uptake at the mid to apical anterior wall with mild reversibility 3. Normal left ventricular size with normal contractility, EF 61 percent PAOLA LIRIANO MD Oct 27, 2020 10:56
== END ==
LOC: CARD 07:30
PROVIDERS: ATTEND Physician Assistant
DX: R07.89 Other chest pain (principal); I10 Essential (primary) hypertension
CPT/HCPCS: 78452; 93017; A9502

== ENCOUNTER 2020-11-03 11:00 | Day surgery (SDC) | payer MEDICARE, OTHER ==
[2020-11-03] VITALS (14 sets, daily range): BP systolic 113–143; BP diastolic 60–77
[~2020-11-03] VITALS: Ht 170 cm; Wt 77.0 kg
[2020-11-03 09:08] LABS: HEMOGLOBIN 13.4 g/dL (11.5-16.0); MEAN PLATELET VOLUME 10.2 fL (9.0-12.2); WHITE BLOOD COUNT 6.6 10^3/uL (4.3-11.0)
[2020-11-03 09:14] LABS: BILIRUBIN,URINE NEGATIVE (NEGATIVE); CLARITY,URINE CLEAR; COLOR,URINE YELLOW; GLUCOSE, URINE (UA) NEGATIVE (NEGATIVE); KETONES,URINE NEGATIVE (NEGATIVE); LEUKOCYTE ESTERASE ,URINE NEGATIVE (NEGATIVE); NITRITE,URINE NEGATIVE (NEGATIVE); PROTEIN,URINE NEGATIVE (NEGATIVE)
[2020-11-03 09:18] LABS: AMORPHOUS SEDIMENT,UR RARE AMOR PHOSPHATE /LPF; BACTERIA,URINE NEGATIVE /HPF; SQUAMOUS EPITHELIAL CELL,UR 0-2 /HPF
[2020-11-03 09:25] LABS: ALANINE AMINOTRANSFERASE 17 U/L (0-55); ALBUMIN 4.2 GM/DL (3.2-4.5); ALKALINE PHOSPHATASE 68 U/L (40-136); BILIRUBIN,TOTAL 1.4 MG/DL (0.1-1.0); BUN/CREATININE RATIO 14; CALCIUM 9.7 MG/DL (8.5-10.1); CARBON DIOXIDE 27 MMOL/L (21-32); CHLORIDE 103 MMOL/L (98-107); CHOLESTEROL 185 MG/DL (< 200); CREATININE SERUM 0.86 MG/DL (0.60-1.30); GFR ESTIMATED > 60; GLUCOSE 81 MG/DL (70-105); HDL CHOLESTEROL 75 MG/DL (40-60); POTASSIUM 3.5 MMOL/L (3.6-5.0); SODIUM 140 MMOL/L (135-145); TOTAL PROTEIN 6.8 GM/DL (6.4-8.2); TRIGLYCERIDES 72 MG/DL (<150); VLDL CHOLESTEROL 14 MG/DL (5-40)
[2020-11-03 09:26] LABS: INR 0.9 (0.8-1.4); PROTHROMBIN TIME PATIENT 12.8 SEC (12.2-14.7)
--- NOTE | 2020-11-03 09:34 | Diagnostic Imaging Report ---
INDICATION: Chest pain. EXAMINATION: Portable chest at 9:06 AM. FINDINGS: The heart size and pulmonary vascularity are normal. The lungs are clear. There are no effusions or pneumothoraces. IMPRESSION: Negative chest. Dictated by: Dictated on workstation # [id number]
--- NOTE | 2020-11-03 10:17 | Cardiac Procedure Note-CS/ASA ---
Pre-Procedure Note Pre-Op Procedure Note H&P Reviewed The H&P was reviewed, patient examined and no changes noted. Date H&P Reviewed: Nov 03, 2020 Time H&P Reviewed: 10:17 Conscious Sedation Pre-Proced Time 10:17 ASA Score 3 For ASA 3 and 4: Consider anesthesia and medical clearance. Also, for patients with a history of failed moderate sedation consider anesthesia. Airway Lungs Heart ASA score ASA 1: a normal healthy patient ASA 2: a patient with a mild systemic disease (mid diabetes, controlled hypertension, obesity x ASA 3: a patient with a severe systemic disease that limits activity (angina, COPD, prior Myocardial infarction) ASA 4: a patient with an incapacitating disease that is a constant threat to life (CHF, renal failure) ASA 5: a moribund patient not expected to survive 24 hrs. (ruptured aneurysm) ASA 6: a declared brain- patient whose organs are being harvested. For emergent operations, add the letter E after the classification Mallampati Classification Grade 3 Sedation Plan Analgesia, Amnesia, Plan communicated to team members, Discussed options with patient/fam, Discussed risks with patient/fam The patient is an appropriate candidate to undergo the planned procedure, sedation, and anesthesia. The patient immediately re-assessed prior to indication. PAOLA LIRIANO MD Nov 03, 2020 10:17
[~2020-11-03 11:00] MED LIST changes: +ASCO500C17 PO; +ASPI-1238 PO; +BIOT1TAB16 PO; -CATHETER FLUSH 10 ML SYR IV PRN; +CHOL500050 PO; +CITA20TA9 PO; +DIPH25TA31 PO; +FAMO20TA3 PO; +FEXO-46 PO; +FIBE1TAB4 PO; +HEParin (CATH LAB) 2,000 ML IV ONE; +HEParin 1000 UNIT/ML (10ML VIAL) FOR BOLUS ONE; +HYDR25TA4 PO; +L.AC1CAP6 PO; +LIDOCAINE 1% INJ 20 ML 20 ML VIAL ONE; +LISI-729 PO; +MIDAZOLAM 5 MG/5 ML (VERSED) VIAL ONE; +MULT-1136 PO; +NITRO DRIP 25000 MCG/D5W 250 ML IV ONE; +NS IV 1000 ML 1,000 ML IV SCH; +NS IV 1000 ML 1,000 ML ONE; +OMEG-9 PO; -REGADENOSON 0.4 MG/5 ML SYR (LEXISCAN) IV ONE; +SIMV40TA25 PO; +SUMA50TA2 PO; +VERAPAMIL 5 MG/2 ML (CALAN) VIAL IV ONE; +ZINC50TA58 PO; +fentaNYL INJECTION 100 MCG/2 ML AMP ONE
--- NOTE | 2020-11-03 11:04 | Discharge Inst-Post CATH ---
Discharge Inst-CATH/EP Problems Reviewed?: Yes Post Cardiac Cath/EP D/C Inst Follow Up/Plan Appointment with Dr. LIRIANO's office in 4 weeks <b>CARDIAC CATH/EP PROCEDURE DISCHARGE INSTRUCTIONS</b> ACTIVITY * Go Home directly and rest. * Limit activity of the leg (or wrist if it was used) for 7 days including aerobics, swimming, jogging, bicycling, etc. * Restrict stair-climbing for 7 days if possible, if not, climb up with your non-cath leg, then bring together on the same step. * Avoid lifting, pushing, pulling or excessive movement of the affected extremity for 7 days. * Customary sexual activity may be resumed after 2 days-use caution not to use a position that strains or causes pain to the affected extremity. * No driving for 24 hours. * NO SMOKING. * Avoid straining for bowel movements for 7 days. * Gentle walking on level ground is allowed. * Returning to work will depend on the type of procedure and the results. Your doctor will discuss this with you. CALL YOUR DOCTOR FOR ANY OF THE FOLLOWING: *If bleeding from the puncture site occurs- Apply gentle pressure to site with clean cloth and call your doctor or EMS. * If a knot or lump forms under the skin, increases in size, or causes pain. * If bruising appears to be worsening or moving further down your leg instead of disappearing. * Temperature above 101 F. CARE OF YOUR GROIN INCISION; * Bruising or purple discoloration of the skin near the puncture site is common. * You may shower only, no bathtub bathing for 5 days. Be careful to avoid slipping as your leg may feel stiff. * If a closure device was used on your femoral artery, please see the attached guide regarding care of the device and your leg. * Leave dressing on FOR 24 hours. CARE OF YOUR WRIST INCISION; * Bruising or purple discoloration of the skin near the puncture site is common. * You may shower. * DO NOT submerge wrist. * Leave dressing on FOR 24 hours. PAOLA LIRIANO MD Nov 03, 2020 11:04 am
--- NOTE | 2020-11-03 11:08 | Cardiac Cath Report ---
Cardiac Cath Report Physician (s)/Culinary Instructor (s) Physician PAOLA LIRIANO MD Pre-Procedure Diagnosis Pre-Procedure Diagnosis: coronary artery disease Post-Procedure Note Procedure Start Date: Nov 03, 2020 Name of Procedure: Left heart catheterization Aortic arch angiogram Findings/Procedure Note PROCEDURE NOTE: 65-year-old lady with history of hypertension, hyperlipidemia, has been having chest pain, had an abnormal stress test, scheduled for cardiac catheterization possible PTCA. After explaining the procedure to the patient, all pros and cons were explained, all questions were answered. The patient signed the consent and then she was placed on the cardiac catheterization laboratory. Groin was prepped SL fashion local anesthesia was used. Sheath placed in the right radial artery, Hematite catheter was advanced to the left ventricular cavity, pressure was measured, pullback LV to aorta was done, angiogram to the right coronary system was done, I was unable to intubate the left coronary system, I exchanged the catheter over a long J-wire to Arslan catheter and did nonselective angiogram to the left coronary system, pullback to the aortic arch was done then angiogram to the aortic arch was done. At the end of the procedure the sheath was removed. Vascular band was used FINDINGS: Hemodynamics LV 102/11, end-diastolic pressure of 11 Aorta 95/54 mean of 65 ANATOMY: Left Main is free of obstructive disease Left Anterior Descending is slightly tortuous with no significant obstructive disease Left Circumflex is small to moderate in size with no obstructive disease Right Coronory Artery is large dominant artery with significant tortuosity and a low in the distal portion of the artery, there is no signal can obstructive disease LV Gram was not done, pressure was measured Aorta evaluation was done with the aortic arch angiogram which showed normal aortic arch, no dissection or aneurysm, normal origin of the great vessels of the neck including the innominate artery, left carotid and left subclavian artery. CONCLUSION: 1. Tortuous coronary system with large loop in the distal right coronary artery, there is no significant obstructive disease 2. Normal aortic arch and great vessels of the neck DISCUSSION AND RECOMMENDATION: Medical therapy is recommended no intervention is warranted Anesthesia Type: Conscious Sedation Estimated blood loss (mL): 20 ml Contrast Amount: 46 ml Total Radiation Dose: 237 mGy Post-Procedure Diagnosis Post-operative diagnosis: Chest pain Coronary artery disease Hypertension Hyperlipidemia PAOLA LIRIANO MD Nov 03, 2020 11:08 am
[2020-11-03] MEDS ORDERED: NS IV 1000 ML 1,000 ML IV SCH (11:15)
[2020-11-03] MEDS ORDERED: ACETAMINOPHEN 500 MG TAB (TYLENOL) ONE (13:45)
[2020-11-03] MEDS ORDERED: ACETAMINOPHEN 500 MG TAB (TYLENOL) PO ONE (14:00)
== END 2020-11-03 15:40 | disposition home or self-care (01) ==
LOC: CATH 11:00 → SDC 11:18 → CATH 15:40
PROVIDERS: ATTEND Internal Medicine Cardiovascular Disease
DX: I25.10 Atherosclerotic heart disease of native coronary artery without angina pectoris (principal); I10 Essential (primary) hypertension; E78.2 Mixed hyperlipidemia; E66.9 Obesity, unspecified; Z68.26 Body mass index [BMI] 26.0-26.9, adult; I34.0 Nonrheumatic mitral (valve) insufficiency; Z79.82 Long term (current) use of aspirin; Z79.899 Other long term (current) drug therapy; Z88.1 Allergy status to other antibiotic agents
CPT/HCPCS: 36221; 71045; 80053; 80061; 81000; 85027; 85610; 85730; 87081; 93458; C1894; 36415

== ENCOUNTER → 2021-03-11 | Outpatient (CLI) | payer MEDICARE, OTHER ==
[~2021-03-11] MED LIST changes: -HEParin (CATH LAB) 2,000 ML IV ONE; -HEParin 1000 UNIT/ML (10ML VIAL) FOR BOLUS ONE; -LIDOCAINE 1% INJ 20 ML 20 ML VIAL ONE; -MIDAZOLAM 5 MG/5 ML (VERSED) VIAL ONE; -NITRO DRIP 25000 MCG/D5W 250 ML IV ONE; -NS IV 1000 ML 1,000 ML IV SCH; -NS IV 1000 ML 1,000 ML ONE; -VERAPAMIL 5 MG/2 ML (CALAN) VIAL IV ONE; -fentaNYL INJECTION 100 MCG/2 ML AMP ONE
--- NOTE | 2021-03-11 14:31 | Diagnostic Imaging Report ---
INDICATION: Routine screening. COMPARISON is made with prior mammograms 11/12/2019 and 09/24/2018. 2-D and 3-D bilateral screening mammography was performed with CAD. Scattered fibroglandular densities are identified bilaterally. A rounded density in the upper outer right breast at mid depth appears stable. Left breast appears stable. There are benign calcifications. No mass or malignant appearing microcalcifications are seen. Axillae are unremarkable. IMPRESSION: BI-RADS Category 2. No mammographic features suspicious for malignancy are identified. ACR BI-RADS Category 2: Benign findings. Result letter will be mailed to the patient. Note: At least 10% of breast cancer is not imaged by mammography. Dictated by: Dictated on workstation # [id number]
== END ==
LOC: RAD 11:15
PROVIDERS: ATTEND Nurse Practitioner Family
DX: Z12.31 Encounter for screening mammogram for malignant neoplasm of breast (principal)
CPT/HCPCS: 77063; 77067

== ENCOUNTER → 2021-12-27 | Outpatient (CLI) | payer MEDICARE, OTHER ==
[~2021-12-27] MED LIST changes: +FEXO-249 PO; -FEXO-46 PO; -LISI-729 PO; +LISI5TAB20 PO
--- NOTE | 2021-12-27 09:49 | Diagnostic Imaging Report ---
INDICATION: Asymptomatic postmenopausal female. COMPARISON: None. FINDINGS: AP Spine L1-L4: [BMD (g/cm2): 1.593] [T-Score: 3.3] [Z-Score: 4.4] [BMD Previous: na] [BMD % Change: na] LT Hip Neck: [BMD (g/cm2): 1.213] [T-Score: 1.3] [Z-Score: 2.6] LT Hip Total: [BMD (g/cm2):1.342] [T-Score:2.6] [Z-Score: 3.7] [BMD Previous: na] [BMD % Change: na] RT Hip Neck: [BMD (g/cm2):1.224] [T-Score:1.3] [Z-Score:2.7] RT Hip Total: [BMD (g/cm2):1.278] [T-score:2.1] [Z-Score:3.2] [BMD Previous:na] [BMD % Change:na] *Indicates significant change from prior examination based on 95% confidence level. World Health Organization criteria for BMD interpretation classify patients as Normal (T-score at or above -1.0), Osteopenic (T-score between -1.0 and -2.5) or Osteoporotic (T-score at or below -2.5). LIMITATIONS AND MODIFICATION: None. FRACTURE RISK (FRAX SCORE): The ten year probability of (%): Major Osteoporotic Fracture: [na] Hip Fracture: [na] IMPRESSION: 1. Normal bone mineral density. 2. Baseline examination. 3. See below National Osteoporosis Foundation guidelines on when to potentially initiate pharmacologic therapy. Based on the National Osteoporosis Foundation Guidelines, pharmacologic treatment should be initiated in any of the following, unless clinical conditions suggest otherwise: * Any patient with prior fragility fracture of the hip or vertebrae. A spine fracture indicates 5X risk for subsequent spine fracture and 2X risk for subsequent hip fracture. * Osteoporosis (T-score <-2.5). * Postmenopausal women and men age 50 and older with low bone mass/osteopenia (T-score between -1.0 and -2.5) by DXA and 10-year major osteoporotic fracture greater than 20% or a 10-year probability of hip fracture greater than 3%. These fracture risks are supplied above in the FRAX score, if applicable. * Clinician judgement and/or patient preferences may indicate treatment for people with 10-year fracture probabilities above or below these levels. Dictated by: Dictated on workstation # [id number]
== END ==
LOC: RAD 08:30
PROVIDERS: ATTEND Nurse Practitioner Family
DX: Z78.0 Asymptomatic menopausal state (principal)
CPT/HCPCS: 77080

== ENCOUNTER 2022-01-19 05:40 | Outpatient (CLI) | payer MEDICARE, OTHER ==
[~2022-01-19] VITALS: Ht 170.2 cm; Wt 83.0 kg
[~2022-01-19 05:40] MED LIST changes: -FEXO-249 PO; +NF-ALLE180 PO
[2022-01-19] MEDS ORDERED: CITA20TA12 PO (12:15)
[2022-01-19] MEDS ORDERED: CETI10TA24 PO (12:15)
[2022-01-19] MEDS ORDERED: TERB250T88 PO (12:15)
== END 2022-01-19 12:21 | disposition home or self-care (01) ==
LOC: PREOP 05:40
PROVIDERS: ATTEND Surgery
DX: Z01.818 Encounter for other preprocedural examination (principal)

== ENCOUNTER 2022-01-31 08:33 | Day surgery (SDC) | payer MEDICARE, OTHER ==
[~2022-01-31] VITALS: Ht 170 cm; Wt 83.0 kg
[~2022-01-31 08:33] MED LIST changes: +CETI10TA24 PO; +CITA20TA12 PO; +TERB250T88 PO
[2022-01-31] MEDS ORDERED: LACTATED RINGERS 1,000 ML IV STA (08:35)
[2022-01-31 08:45] VITALS: BP 177/94
--- NOTE | 2022-01-31 09:42 | Progress Note-Pre Operative ---
Pre-Operative Progress Note H&P Reviewed The H&P was reviewed, patient examined and no changes noted. Date Seen by Provider: January 31, 2022 Time Seen by Provider: 09:41 Date H&P Reviewed: January 31, 2022 Time H&P Reviewed: 09:42 Pre-Operative Diagnosis: family hx colon cancer JENIFER MARTELL DO January 31, 2022 09:42
[2022-01-31] MEDS ORDERED: MIDAZOLAM 2 MG/2 ML (VERSED) VIAL ONE (10:04)
[2022-01-31] MEDS ORDERED: PROPOFOL INJECTION 50 ML IV ONE (10:04)
--- NOTE | 2022-01-31 10:54 | Progress Note-Post Operative ---
Post-Operative Progess Note Surgeon (s)/Box Order Person (s) Surgeon JENIFER MARTELL DO Box Order Person: na Pre-Operative Diagnosis family hx colon cancer Post-Operative Diagnosis diverticulosis Procedure & Operative Findings Date of Procedure 01/31/22 Procedure Performed/Findings colonoscopy Anesthesia Type per interactive developer Estimated Blood Loss Estimated blood loss (mL): none Specimens/Packing Specimens Removed na JENIFER MARTELL DO January 31, 2022 10:54
[2022-01-31 10:55] VITALS: BP 107/61
--- NOTE | 2022-01-31 10:55 | Discharge Inst-Simple/Standard ---
Discharge Inst-Standard Patient Instructions/Follow Up Plan of Care/Instructions/FU: Saranya 5 years. Any issues before that be seen at that time. Activity as Tolerated: Yes Discharge Diet: Regular Diet (high fiber) JENIFER MARTELL DO January 31, 2022 10:55
[2022-01-31 11:00] VITALS: BP 104/61
[2022-01-31 11:05] VITALS: BP 104/61
[2022-01-31 12:00] VITALS: BP 124/68
--- NOTE | 2022-01-31 12:38 | Anesthesia-General Post-Op ---
MAC Patient Condition Mental Status/LOC: Same as Preop Cardiovascular: Satisfactory Nausea/Vomiting: Absent Respiratory: Satisfactory Pain: Controlled Complications: Absent Post Op Complications Complications None Follow Up Care/Instructions Patient Instructions None needed. Anesthesiology Discharge Order Discharge Order Patient is doing well, no complaints, stable vital signs, no apparent adverse anesthesia problems. No complications reported per nursing. GORAN ORR CRNA January 31, 2022 12:38
--- NOTE | 2022-01-31 15:06 | OPERATIVE REPORT ---
DATE OF SERVICE: 01/31/2022 PREOPERATIVE DIAGNOSIS: Family history of colon cancer. POSTOPERATIVE DIAGNOSIS: Diverticulosis. PROCEDURE: Colonoscopy. SURGEON: Jenifer Beaver DO ANESTHESIA: Per PAYROLL TAX ANALYST. ESTIMATED BLOOD LOSS: None. COMPLICATIONS: None. INDICATIONS: The patient is a 66-year-old female in need of screening colonoscopy due to family history of colon cancer. She understands and wishes to proceed with consent signed and on the chart. DESCRIPTION OF PROCEDURE: The patient was taken to the endoscopy suite, placed in left lateral recumbent position. Timeout was performed. Digital rectal exam was performed noting some internal hemorrhoids. No palpable polyps, masses or ulcerations. Scope was inserted in the rectum and advanced all the way to cecum with minimal difficulty. Prep was adequate with irrigation and suction. Scope was slowly retracted back. No polyps, masses or ulcerations within the cecum, ascending, transverse, descending and sigmoid colon. In the sigmoid colon, minimal amount of diverticulosis present. Once in the rectum, scope was retroflexed noting no other pathology. Scope was returned to its normal position, slowly withdrawn until completely removed. The patient tolerated procedure well without any complications. She was taken to recovery room in stable condition. RECOMMENDATIONS: The patient will need repeat colonoscopy in 5 years. Any issues before that be seen at that time. Job ID: [id number] DocumentID: [id number] Dictated Date: 01/31/2022 10:57:30 Air Brush Decorator Date: 01/31/2022 15:06:20 Dictated By: JENIFER BEAVER DO
== END 2022-01-31 12:08 | disposition home or self-care (01) ==
LOC: ENDO 08:33
PROVIDERS: ATTEND Surgery
DX: Z12.11 Encounter for screening for malignant neoplasm of colon (principal); K57.30 Diverticulosis of large intestine without perforation or abscess without bleeding; Z80.0 Family history of malignant neoplasm of digestive organs

== ENCOUNTER → 2022-06-08 | Outpatient (CLI) | payer MEDICARE, OTHER ==
--- NOTE | 2022-06-08 13:38 | Diagnostic Imaging Report ---
Indication: Routine screening. Comparison is made with prior mammogram from 03/11/2021 and 11/12/2019. 2-D and 3-D bilateral screening mammography was performed with CAD. CAD is utilized. The current study was also evaluated with a Computer Aided Detection (CAD) system. Scattered fibroglandular densities are identified bilaterally. A rounded mass in the outer right breast appears stable. No new mass or malignant-appearing microcalcifications are seen. There are scattered benign calcifications noted bilaterally. The axillae are unremarkable. IMPRESSION: BI-RADS Category 2 No mammographic features suspicious for malignancy are identified. ACR BI-RADS Category 2: Benign findings. Result letter will be mailed to the patient. Note: At least 10% of breast cancer is not imaged by mammography. Dictated by: Dictated on workstation # [id number]
== END ==
LOC: RAD 11:15
PROVIDERS: ATTEND Nurse Practitioner Family
DX: Z12.31 Encounter for screening mammogram for malignant neoplasm of breast (principal)
CPT/HCPCS: 77063; 77067

== ENCOUNTER → 2023-04-11 | Outpatient (CLI) | payer MEDICARE, OTHER ==
--- NOTE | 2023-04-11 11:00 | Diagnostic Imaging Report ---
CLINICAL INDICATION: Patient with numbness in fingers and back pain. EXAM: MRI of the cervical spine performed without IV contrast. Sequences include sagittal T2, sagittal T1, sagittal T2 fat-sat, and axial T2. COMPARISON: None. FINDINGS: There is no acute cervical spine fracture. There are no significant degenerative signal changes. Limited visualization of the posterior fossa is unremarkable. There is slight tortuosity and deformity of the cervical cord at the C5-C6 level due to disk disease. Otherwise, the cervical spinal cord has normal cord caliber with no abnormal signal. There is no significant paraspinal soft tissue abnormality. There are cervical spine vertebral body spurs and facet arthropathy. C1-C2: There is no significant central canal stenosis. C2-C3: There is ligamentum flavum buckling. There is minimal central canal narrowing. There is no significant neural foramen narrowing. C3-C4: There is moderate bilateral facet arthropathy/hypertrophy. There is mild right neural foramen narrowing and [id number] left neural foramen narrowing. There is no significant central canal stenosis. C4-C5: There is grade 1 anterolisthesis of C4 on C5. There is mild diffuse disk bulge with superimposed disk spurs in the left foraminal region. There is mild loss of disk space height. There is anag-iy-dpjmdoay loss of disk space height and bilateral uncinate spurs. There is ligamentum flavum buckling. There is moderate bilateral facet arthropathy/hypertrophy. There is severe left neural foramen narrowing and mild right neural foramen narrowing. There is moderate central canal stenosis. C5-C6: There is a diffuse disk bulge with [id number]-rw-[id number] loss of disk space height. There are bilateral uncinate spurs and ligamentum flavum buckling. There is moderate central canal stenosis, severe left neural foramen narrowing and mild right neural foramen narrowing. C6-C7: There is a subtle posterior disk bulge and ligamentum flavum buckling. There is mild bilateral facet arthropathy. There is mild central canal stenosis. There is mild bilateral neural foramen narrowing. C7-T1: There is no significant disk bulge. There is moderate bilateral facet arthropathy/hypertrophy. There is no significant central canal or neural foramen narrowing. IMPRESSION: There is multilevel cervical spine degenerative disk disease which is described above. Dictated by: Dictated on workstation # [id number]
== END ==
LOC: RAD 10:15
PROVIDERS: ATTEND Nurse Practitioner Family
DX: M50.322 Other cervical disc degeneration at C5-C6 level (principal); M50.323 Other cervical disc degeneration at C6-C7 level; M50.321 Other cervical disc degeneration at C4-C5 level; M47.812 Spondylosis without myelopathy or radiculopathy, cervical region; M24.28 Disorder of ligament, vertebrae; M43.12 Spondylolisthesis, cervical region; M48.02 Spinal stenosis, cervical region
CPT/HCPCS: 72141